=== PATIENT | male | born 1970 | race African-American/Black ===

== ENCOUNTER 2021-10-29 10:52 | Inpatient (IN) | payer BC ==
[~2021-10-29] VITALS: Ht 190.5 cm; Wt 79.2 kg
[~2021-10-29 10:52] MED LIST: NO HOME MEDICATIONS
[2021-10-29 12:14] VITALS: BP 143/92; PULSE 73; TEMP 97.9
--- NOTE | 2021-10-29 13:27 | NUR ---
ADMISSION INTAKE AND ASSESSMENT COMPLETED. PT ORIENTED TO ROOM. PAIN AND NAUSEA MEDICATIONS GIVEN PER MAR. NS INFUSING AT 150ML/HR. CONTINUING TO MONITOR.
[2021-10-29 13:39] LABS: ALBUMIN 3.8 gm/dL (3.5-5.0); BILIRUBIN,TOTAL 1.5 mg/dL (0.2-1.2); CALCIUM 9.2 mg/dL (8.4-10.2); CREATININE, serum 0.97 mg/dL (0.72-1.25); POTASSIUM 3.2 mmol/L (3.5-4.5); TOTAL PROTEIN 6.8 gm/dL (6.2-8.1)
[2021-10-29 15:40] VITALS: BP 150/89; PULSE 79; TEMP 97.6
[2021-10-29 19:30] VITALS: BP 146/85; PULSE 78; TEMP 98.2
--- NOTE | 2021-10-29 20:30 | NUR ---
Pt is resting in bed, watching TV, alert and oriented x 4, reports constant pain in the area of the pancreas 05/05. He asks for pain medications every 2 hrs. No physical signs of discomfort. VSS, some hypertension. Urine sample colected, potassium replaced. Getting NS 150 ML/HR. Assessment completed, medications provided. No further needs at this time. Call light within reach.
[2021-10-29 21:23] LABS: COLLECTION METHOD CLEAN CATCH
[2021-10-29 21:31] LABS: MUCOUS Present (NOT PRESENT); PH 5 (5-8); SQUAMOUS EPITHELIAL None Seen /hpf (0-10); URINE APPEARANCE Clear (CLEAR/HAZY); URINE BACTERIA Rare /hpf (NONE SEEN); URINE BILIRUBIN Negative (NEGATIVE); URINE BLOOD Negative (NEGATIVE); URINE COLOR Amber (YELLOW); URINE GLUCOSE Negative (NEGATIVE); URINE KETONE Trace (NEGATIVE); URINE LEUKOCYTE ESTERASE Negative (NEGATIVE); URINE NITRATE Negative (NEGATIVE); URINE PROTEIN(semi-quant) 1+ (NEGATIVE); URINE UROBILINOGEN Negative (NEGATIVE)
[2021-10-29 23:56] VITALS: BP 147/72; PULSE 79; TEMP 98.7
[2021-10-30 03:44] VITALS: BP 137/88; PULSE 74; TEMP 98.6
[2021-10-30 06:08] LABS: BASO % 0.3 % (0.0-2.0); EOS # 0.3 K/mm3 (0.0-0.7); EOS % 4.4 % (0.0-4.0); GRAN # 4.5 K/mm3 (1.4-6.5); HEMATOCRIT 37.9 % (42.0-52.0); HEMOGLOBIN 12.8 g/dl (13.5-18.0); LYMPH # 1.6 K/mm3 (1.2-3.4); MEAN CELL VOLUME 95 fl (80.0-100.0); MEAN CORPUSCULAR HEMOGLOBIN 32 pg (27-31); MEAN CORPUSCULAR HGB CONC 34 g/dl (33.0-37.0); MEAN PLATELET VOLUME 9.8 fl (7.4-10.4); MONO # 0.8 K/mm3 (0.1-0.6); PLATELET COUNT 204 K/mm3 (130-400); RED BLOOD COUNT 3.98 M/mm3 (4.20-5.60); REDCELL DISTRIBUTION WIDTH-CV 12.5 % (11.5-14.5)
--- NOTE | 2021-10-30 06:25 | NUR ---
Pt has not been able to sleep. All night he had pain. Several doses of dilaudid PRN provided. Pt reports something made him had gasses. He is uncertain about the cause. Continues with NS 150 ml/hr. Report will be given to day RN.
[2021-10-30 06:28] LABS: ALBUMIN 3.3 gm/dL (3.5-5.0); BILIRUBIN,TOTAL 0.8 mg/dL (0.2-1.2); CALCIUM 7.9 mg/dL (8.4-10.2); CREATININE, serum 0.81 mg/dL (0.72-1.25); POTASSIUM 3.3 mmol/L (3.5-4.5); TOTAL PROTEIN 5.7 gm/dL (6.2-8.1)
[2021-10-30 07:36] VITALS: BP 143/88; PULSE 77; TEMP 98.6
--- NOTE | 2021-10-30 09:20 | NUR ---
[employer] Analyst met with patient to discuss discharge planning. Patient lives alone in [place] and sees Dr. Kessler for primary care. Patient obtains medications from [facility] in [place] with no difficulties. Patient does not use any DME and is independent with ADLS. Patient does not have Advance Directives and is not interested in establishing DPOA-HC at this time. Patient is not and has two chidren: Leonardo Cruz and Jose Cruz, both live in [place]. Patient also has a mother, David (ph#[phone]) that lives in [place]. Patient plans to return home upon discharge. Discharge Plan: Home
--- NOTE | 2021-10-30 09:36 | NUR ---
PT RESTING IN BED. MORNING MEDICATIONS GIVEN. SHIFT ASSESSMENT COMPLETED. PT REQUIRING PAIN MEDICATIONS Q2HR. DENIES ANY NAUSEA. NS INFUSING AT 150ML/HR. CONTINUING TO MONITOR.
--- NOTE | 2021-10-30 09:36 | NUR ---
Initial visit attempt; Patient resting, [employer] left Prayer card and information regarding the availability of spiritual care at our hospital.
[2021-10-30 12:48] VITALS: BP 139/92; PULSE 80; TEMP 98
[2021-10-30 15:39] VITALS: BP 141/91; PULSE 74; TEMP 98.4
[2021-10-30 19:30] VITALS: BP 145/85; PULSE 77; TEMP 98.5
--- NOTE | 2021-10-30 20:03 | NUR ---
Patient assessed around 1930. Alert and oriented x 4, and able to make needs known. Complains of continuous pain to abdomen, and received PRN Dilaudid per orders. IV fluids continue to peripheral IV to right forearm per orders. Denies SOB and dyspnea. LS CTA. HRR. Capillary refill less than 3 seconds. Non-tenting skin turgor. BSAx4. No edema. Voices no questions, needs, or concerns at this time. In bed with call light within reach.
[2021-10-30 23:32] VITALS: BP 139/92; PULSE 81; TEMP 98.4
[2021-10-31 04:03] VITALS: BP 151/96; PULSE 70; TEMP 97.4
--- NOTE | 2021-10-31 05:34 | NUR ---
Patient has receive PRN Dilaudid as requested for pain to abdomen per orders. IV fluids continue per orders. Has tolerated clear liquid diet this shift well, has denied nausea, no vomiting this shift. In bed with call light within reach.
[2021-10-31 06:12] LABS: CALCIUM 8.1 mg/dL (8.4-10.2); CREATININE, serum 0.67 mg/dL (0.72-1.25); MAGNESIUM 1.7 mg/dL (1.6-2.6); POTASSIUM 3.5 mmol/L (3.5-4.5)
--- NOTE | 2021-10-31 07:11 | NUR ---
PT LAYING IN BED AT THIS TIME. NO OTHER CONCERNS.
[2021-10-31 07:32] VITALS: BP 142/84; PULSE 75; TEMP 98.5
--- NOTE | 2021-10-31 08:52 | NUR ---
PT IS LAYING IN BED AT THIS TIME. HE STATES THAT HIS PAIN IS A 8/10 AND HE FEELS THAT IT MAY BE FROM DRINKING HIS FLUIDS TOO FAST. THIS RN GAVE HIM HIS ORDERED DIALUDID, WHICH BROUGHT THE PAIN DOWN TO A NEGLIGABLE NUMBER. ASKED PROVIDER FOR ORAL PAIN MANAGEMENT TO HELP KEEP THE PAIN AT [place] LONG[facility]. PPI ORDERED WELL ORAL PAIN MANAGEMENT. WILL ASSESS PATIENT PRN HE STATES HE DENIES ANY NEEDS AT THIS TIME. ASSESSMENT COMPLETED. PROVIDER NOTED THAT THEY ARE ADVANCING HIS DIET, THIS RN WILL CONTINUE TO MONITOR NAUSEA/VOMITING DUE TO ADVANCEMENT. NO OTHER CONCERNS AT THIS TIME.
[2021-10-31 11:05] VITALS: BP 134/78; PULSE 71; TEMP 98.2
--- NOTE | 2021-10-31 13:17 | NUR ---
PT ATE SALMON, BROCCOLI AND RICE FOR LUNCH, STATES THAT IT DID NOT MAKE HIM NAUSEATED, HOWEVER HE FELT IT GETTING TIGHT. ASKED FOR PRN ORAL PAIN MEDICATION AT THIS TIME.
--- NOTE | 2021-10-31 13:30 | NUR ---
PT RESTING IN BED AT THIS TIME. C/O SLIGHT ABDOMINAL PAIN. PAIN MEDICATIONS ADMINISTERED PER MAR AT THIS TIME.
[2021-10-31 15:13] VITALS: BP 133/90; PULSE 75; TEMP 98.2
--- NOTE | 2021-10-31 19:45 | NUR ---
Initial shift assessment done- states abd pain 05/05 -requesting the roxicodone, states the previous nurse earlier today tried the 5 mg nut was not effective so she gave him 10 mg the next dose and that was effective- so will give 10mg Roxicodone at this time- some broth given to patient, tolerated his supper well, IV fluids of NS at 100cc/hr. Denies N/V/D.
[2021-10-31 19:53] VITALS: BP 138/91; PULSE 74; TEMP 98.6
[2021-11-01 00:19] VITALS: BP 141/90; PULSE 63; TEMP 98
[2021-11-01 04:05] VITALS: BP 144/94; PULSE 63; TEMP 98.2
--- NOTE | 2021-11-01 05:49 | NUR ---
Quiet night- has been medicated for abd pain with Roxicodone /Dilaudid during the night as ordered, did sleep a couple hours, VSS
[2021-11-01 06:40] LABS: BASO % 0.6 % (0.0-2.0); EOS # 0.2 K/mm3 (0.0-0.7); GRAN # 2.5 K/mm3 (1.4-6.5); GRAN % 52.6 % (42.2-75.2); HEMATOCRIT 37.5 % (42.0-52.0); HEMOGLOBIN 12.6 g/dl (13.5-18.0); LYMPH # 1.4 K/mm3 (1.2-3.4); LYMPH % 30.3 % (20.0-51.0); MEAN CELL VOLUME 95 fl (80.0-100.0); MEAN CORPUSCULAR HEMOGLOBIN 32 pg (27-31); MEAN CORPUSCULAR HGB CONC 34 g/dl (33.0-37.0); MEAN PLATELET VOLUME 10.1 fl (7.4-10.4); MONO # 0.6 K/mm3 (0.1-0.6); MONO % 12.3 % (1.7-9.3); PLATELET COUNT 212 K/mm3 (130-400); RED BLOOD COUNT 3.96 M/mm3 (4.20-5.60); REDCELL DISTRIBUTION WIDTH-CV 12.2 % (11.5-14.5)
[2021-11-01 07:05] LABS: ALBUMIN 3.1 gm/dL (3.5-5.0); CALCIUM 8.4 mg/dL (8.4-10.2); CREATININE, serum 0.74 mg/dL (0.72-1.25); MAGNESIUM 1.8 mg/dL (1.6-2.6); PHOSPHOROUS 2.6 mg/dL (2.3-4.7); POTASSIUM 3.5 mmol/L (3.5-4.5)
[2021-11-01 07:20] VITALS: BP 149/91; PULSE 73; TEMP 97.7
--- NOTE | 2021-11-01 07:30 | NUR ---
PT LAYING IN BED AT THIS TIME. COMPLAINS OF PAIN 05/05. MEDICATIONS ADMINISTERED PER PATIENT REQUEST.
--- NOTE | 2021-11-01 08:05 | NUR ---
THE PATIENT HAS COMPLAINT OF PAIN 05/05. MEDICATION ADMINISTERED PER MAR & PATIENT REQUEST. 10MG ROXICODONE HAS BEEN SUFFICIENT IN CONTROLLING THE PAIN. PT STATES HIS STOMACHE FEELS "TIGHT" AFTER EATING. THIS RN SUGGESTS THAT HE EAT JUST A BIT LESS, TO AVOID THAT FEELING.
[2021-11-01] MEDS ORDERED: THIAMINE 1100 MG/TAB PO (09:41)
[2021-11-01] MEDS ORDERED: FOLIC ACID 11 MG/TA1 PO (09:41)
[2021-11-01 11:36] VITALS: BP 135/80; PULSE 68; TEMP 97.8
[2021-11-01 15:18] VITALS: BP 141/87; PULSE 70; TEMP 97.6
[2021-11-01 19:54] VITALS: BP 134/85; PULSE 72; TEMP 98.5
--- NOTE | 2021-11-01 22:00 | NUR ---
ASSESSMENT COMPLETE FOR THIS SHIFT. PT SITTING UP IN BED WATCHING TV. PT COMPLAINED OF ABD PAIN. PT GIVEN NORCO FOR PAIN. PAIN MEDICATION RELIEVED SOME OF PT'S PAIN PER PT. PT DENIED PALPITATIONS, N,V,D, SOB OR DIZZINESS. PT REQUESTED AND GIVEN CHICKEN BROTH AND CRACKERS. PT EXPRESSED NO OTHER NEEDS AT THIS TIME. CALL LIGHT WITHIN REACH.
[2021-11-02 00:07] VITALS: BP 140/91; PULSE 73; TEMP 99.3
[2021-11-02 04:05] VITALS: BP 142/87; PULSE 67; TEMP 98
[2021-11-02 06:55] LABS: BASO % 0.7 % (0.0-2.0); EOS # 0.2 K/mm3 (0.0-0.7); EOS % 4.4 % (0.0-4.0); GRAN # 2.1 K/mm3 (1.4-6.5); GRAN % 45.9 % (42.2-75.2); HEMATOCRIT 38.9 % (42.0-52.0); HEMOGLOBIN 13.2 g/dl (13.5-18.0); LYMPH # 1.6 K/mm3 (1.2-3.4); LYMPH % 33.8 % (20.0-51.0); MEAN CELL VOLUME 95 fl (80.0-100.0); MEAN CORPUSCULAR HEMOGLOBIN 32 pg (27-31); MEAN CORPUSCULAR HGB CONC 34 g/dl (33.0-37.0); MONO # 0.7 K/mm3 (0.1-0.6); PLATELET COUNT 241 K/mm3 (130-400); REDCELL DISTRIBUTION WIDTH-CV 12.3 % (11.5-14.5)
[2021-11-02 07:27] LABS: ALBUMIN 3.1 gm/dL (3.5-5.0); CALCIUM 8.9 mg/dL (8.4-10.2); CREATININE, serum 0.83 mg/dL (0.72-1.25); MAGNESIUM 1.9 mg/dL (1.6-2.6); PHOSPHOROUS 3.3 mg/dL (2.3-4.7); POTASSIUM 4.5 mmol/L (3.5-4.5)
[2021-11-02 08:04] VITALS: BP 128/82; PULSE 70; TEMP 98.2
--- NOTE | 2021-11-02 08:30 | NUR ---
Patient lying in bed upon entering the room. Patient is independent and does not have any complaints/concerns this morning. Patient ate breakfast and reports pain to be at a 5/10. Declined any needs at this time. Possible DC today.
== END 2021-11-02 10:45 | disposition home or self-care (01) | DRG 439 ==
LOC: MEDICAL 10:52
PROVIDERS: Physician Assistant; ADMIT Internal Medicine
DX: K85.20 Alcohol induced acute pancreatitis without necrosis or infection (principal); R18.8 Other ascites; N17.9 Acute kidney failure, unspecified; F17.210 Nicotine dependence, cigarettes, uncomplicated; E87.6 Hypokalemia; K29.20 Alcoholic gastritis without bleeding; Z23 Encounter for immunization
CPT/HCPCS: 99223-AI; 99232-AI; 99233-AI; 99239; J1170; J2270; J2405; J7030